=== PATIENT | male | born 1960 | race Caucasian/White ===

== ENCOUNTER 2019-10-17 12:53 | Inpatient (IN) | payer OTHER ==
[~2019-10-17] VITALS: Ht 180.3 cm; Wt 79.6 kg
[2019-10-17 15:47] VITALS: BP 185/103
[2019-10-17 16:54] LABS: BASOPHILS 0.2 % (0-2); EOSINOPHILS 0.4 % (0-7); HEMATOCRIT 45.8 % (42.0-54.0); HEMOGLOBIN 15.8 g/dL (13.5-17.5); IMMATURE GRANULOCYTES 0.2 % (0-5); LYMPHOCYTES 33.6 % (15-50); MCH 33.3 pg (26.0-34.0); MCHC 34.5 g/dL (31.0-37.0); MCV 96.6 fL (80.0-100.0); MEAN PLATELET VOLUME 10.4 fL (7.4-10.4); MONOCYTES 5.2 % (2-11); NEUTROPHILS 60.4 % (40-80); PLATELET COUNT 213 10x3/uL (130-400); RBC 4.74 10x6/uL (4.20-6.10); RDW 12.6 % (11.5-14.5); WBC 9.4 10x3/uL (4.8-10.8)
[2019-10-17 17:18] LABS: CALC OSMOLALITY 277 mosm/kg (275-300); CALCIUM 8.7 mg/dL (8.5-10.1); CARBON DIOXIDE 28.4 mmol/L (21.0-32.0); CHLORIDE - SERUM 105 mmol/L (98-107); CREATININE - SERUM 0.9 mg/dL (0.6-1.3); GLUCOSE 83 mg/dL (74-106); POTASSIUM - SERUM 3.9 mmol/L (3.5-5.1); SODIUM 141 mmol/L (136-145); UREA NITROGEN 8 mg/dL (7-18); eGFR NON AFRICAN AMERICAN > 90 mL/min (90-120)
[2019-10-17 17:22] LABS: ALBUMIN 3.8 g/dL (3.4-5.0); ALKALINE PHOSPHATASE 93 U/L (46-116); ALT (SGPT) 33 U/L (10-68); BILIRUBIN - TOTAL 0.37 mg/dL (0.2-1.3); PROTEIN - SERUM 7.5 g/dL (6.4-8.2)
--- NOTE | 2019-10-17 18:42 | NUR ---
PATIENT SITTING UP ON STRETCHER WITHOUT DISTRESS, NECK PAIN 06/07, MD JUST NOTIFIED PATIENT THAT HE WILL BE ADMITTED. MEDICATION GIVEN PER ORDER.
--- NOTE | 2019-10-17 18:59 | NUR ---
HOSPITALIST TO BEDSIDE.
[2019-10-17 19:30] VITALS: BP 181/93
--- NOTE | 2019-10-17 20:41 | NUR ---
ATTEMPTED TO CALL REPORT TO NII SCHULTZ, ROOM NOT READY AT THIS TIME.
[2019-10-17 21:01] VITALS: BP 158/75
[2019-10-18] VITALS (15 sets, daily range): BP systolic 118–166; BP diastolic 71–110; BMI 22.3
--- NOTE | 2019-10-18 03:06 | NUR ---
2100) ER CALLED TALKED WITH RITA TO INFORM RM [phone] IS NOW READY.
[2019-10-18 06:15] LABS: BASOPHILS 0 % (0-2); EOSINOPHILS 0 % (0-7); HEMATOCRIT 45.5 % (42.0-54.0); HEMOGLOBIN 15.8 g/dL (13.5-17.5); IMMATURE GRANULOCYTES 0.3 % (0-5); MCH 33.4 pg (26.0-34.0); MCHC 34.7 g/dL (31.0-37.0); MCV 96.2 fL (80.0-100.0); MEAN PLATELET VOLUME 10.8 fL (7.4-10.4); MONOCYTES 1.2 % (2-11); NEUTROPHILS 84.5 % (40-80); PLATELET COUNT 201 10x3/uL (130-400); RBC 4.73 10x6/uL (4.20-6.10); RDW 12.5 % (11.5-14.5)
[2019-10-18 06:32] LABS: ALBUMIN 3.4 g/dL (3.4-5.0); ALKALINE PHOSPHATASE 92 U/L (46-116); ALT (SGPT) 34 U/L (10-68); APTT 26.8 SECONDS (22.8-39.4); BILIRUBIN - TOTAL 0.52 mg/dL (0.2-1.3); CALCIUM 8.5 mg/dL (8.5-10.1); CARBON DIOXIDE 27.3 mmol/L (21.0-32.0); CHLORIDE - SERUM 105 mmol/L (98-107); CREATININE - SERUM 0.9 mg/dL (0.6-1.3); PHOSPHOROUS 2.7 mg/dL (2.5-4.9); PROTEIN - SERUM 7.1 g/dL (6.4-8.2); SODIUM 138 mmol/L (136-145); UREA NITROGEN 9 mg/dL (7-18); eGFR NON AFRICAN AMERICAN > 90 mL/min (90-120)
[2019-10-18 06:33] LABS: CALC OSMOLALITY 277 mosm/kg (275-300); GLUCOSE 160 mg/dL (74-106)
[2019-10-18 06:36] LABS: INR 0.98 (0.85-1.17); PROTIME 12.5 SECONDS (11.6-15.0)
[2019-10-18 07:01] LABS: WBC 5.9 10x3/uL (4.8-10.8)
--- NOTE | 2019-10-18 13:10 | NUR ---
TAKEN TO CT PER BED, AT BEDSIDE
[2019-10-18 15:28] LABS: UDS - AMPHET NEGATIVE QUAL (NEGATIVE); UDS - BARB NEGATIVE QUAL (NEGATIVE); UDS - BENZO POSITIVE QUAL (NEGATIVE); UDS - COCAINE NEGATIVE QUAL (NEGATIVE); UDS - OPIATE POSITIVE QUAL (NEGATIVE); UDS - PCP NEGATIVE QUAL (NEGATIVE); UDS - THC POSITIVE QUAL (NEGATIVE)
[2019-10-18 15:34] LABS: APPEARANCE CLEAR (CLEAR); BILIRUBIN NEGATIVE (NEGATIVE); COLOR YELLOW (YELLOW); GLUCOSE NEGATIVE (NEGATIVE); KETONE SMALL mg/dL (NEGATIVE); NITRITE NEGATIVE (NEGATIVE); PROTEIN NEGATIVE (NEGATIVE); UROBILINOGEN NORMAL (NORMAL)
--- NOTE | 2019-10-18 15:37 | NUR ---
PT TAKEN TO CT FOR CHEST TUBE PLACEMENT, PT ON O2 PER NC AT 3L, SATING 96%
--- NOTE | 2019-10-18 16:29 | NUR ---
RETURNED TO UNIT WITH CHEST TUBE IN PLACE TO RIGHT SIDE, NO DISTRESS NOTED, VITALS BEING MONITORED
[2019-10-19 01:47] VITALS: BP 157/81
--- NOTE | 2019-10-19 04:33 | NUR ---
PATIENT WITH C/O PAIN STATED IT IS SHARP TO BACK UNDER SHOULDER BLAD TO SPINE. ASK IF CHEST TUB WAS OK. CHEST TUB ASSISST WITH NO LEAKS NOTED.PRN MORPHINE GIVEN. C/O SHARP KHOA AT 0000. CALL TO REGISTERED PUBLIC SURVEYOR TALKED WITH HIM REASSISED CHEST TUBE WITH COLLISION CENTER MANAGER WITH NO LOEAKS NOTED SETTING CHECKED AND CORECT. MORPE GIVEN. RESTNQ
[2019-10-19 06:22] VITALS: BP 174/83
[2019-10-19 06:45] LABS: BASOPHILS 0.1 % (0-2); EOSINOPHILS 0.1 % (0-7); HEMOGLOBIN 13.9 g/dL (13.5-17.5); IMMATURE GRANULOCYTES 0.3 % (0-5); LYMPHOCYTES 19.6 % (15-50); MCH 32.9 pg (26.0-34.0); MCHC 33.9 g/dL (31.0-37.0); MCV 96.9 fL (80.0-100.0); MEAN PLATELET VOLUME 11.2 fL (7.4-10.4); MONOCYTES 4.9 % (2-11); PLATELET COUNT 190 10x3/uL (130-400); RBC 4.23 10x6/uL (4.20-6.10); RDW 12.7 % (11.5-14.5)
[2019-10-19 06:46] LABS: WBC 11.5 10x3/uL (4.8-10.8)
[2019-10-19 07:04] LABS: CALC OSMOLALITY 276 mosm/kg (275-300); CALCIUM 7.9 mg/dL (8.5-10.1); CARBON DIOXIDE 25.4 mmol/L (21.0-32.0); CHLORIDE - SERUM 108 mmol/L (98-107); CREATININE - SERUM 0.9 mg/dL (0.6-1.3); GLUCOSE 84 mg/dL (74-106); MAGNESIUM - SERUM 2.4 mg/dL (1.8-2.4); PHOSPHOROUS 3.4 mg/dL (2.5-4.9); POTASSIUM - SERUM 3.9 mmol/L (3.5-5.1); SODIUM 140 mmol/L (136-145); UREA NITROGEN 11 mg/dL (7-18); eGFR NON AFRICAN AMERICAN > 90 mL/min (90-120)
[2019-10-19 08:42] VITALS: BP 131/81
--- NOTE | 2019-10-19 10:11 | NUR ---
PT ALERT X 4. BREATH SOUNDS CLEAR BILAT, 2L O2 PER NC. DRESSING TO RIGHT UPPER CHEST CDI. CHEST TUBE TO RIGHT SIDE, SET TO WATER SEAL, DRESSING CDI. IV TO RIGHT AC, PATENT, DRESSING CDI. PT REPORTING PAIN OF 10/10, MEDICATED PER ORDERS, WILL MONITOR. BED LOW, CALL LIGHT IN REACH. NO OTHER NEEDS AT THIS TIME.
[2019-10-19 12:44] VITALS: BP 152/80
--- NOTE | 2019-10-19 15:16 | MORECARE ---
CASE MANAGEMENT DISCHARGE SUMMARY PATIENT: MAX IGLESIAS UNIT: [id number] ADM DATE: 10/18/19 AGE: 59 : 62 SEX: M ROOM/BED: D.2239 AUTHOR: AMERICA BRIAN PHYSICIAN: REFERRING PHYSICIAN: ED TRAN MD DATE OF SERVICE: 10/19/19 Discharge Plan Patient Name: MAX IGLESIAS Facility: [facility]:[place] : 1960 Planned Disposition: Home Anticipated Discharge Date: 10/19/19 Discharge Date: Expected LOS: 1 Initial Reviewer: [email or web address] Initial Review Date: 10/19/2019 Generated: 10/19/19 4:15 pm Patient Name: MAX IGLESIAS Page [id number] at 1516 All edits/amendments must be made on the electronic document DICTATION DATE: 10/19/191514 GIS ANALYST: SCOTTY 10/19/191514 RPT#: [id number] DC DATE: STATUS: ADM IN [facility] [address] [place] [address] END OF REPORT
--- NOTE | 2019-10-19 15:25 | MORECARE ---
CASE MANAGEMENT DISCHARGE SUMMARY PATIENT: MAX MUÑOZ UNIT: [id number] ADM DATE: 10/18/19 AGE: 59 : 62 SEX: M ROOM/BED: D.2239 AUTHOR: SNEHALDOC PHYSICIAN: REFERRING PHYSICIAN: ED TRAN MD DATE OF SERVICE: 10/19/19 Discharge Plan Patient Name: MAX MUÑOZ Facility: [facility]:[place] : 1960 Planned Disposition: Home Anticipated Discharge Date: 10/19/19 Discharge Date: Expected LOS: 1 Initial Reviewer: [email or web address] Initial Review Date: 10/19/2019 Generated: 10/19/19 4:25 pm DCP- Discharge Planning Updated by [email or web address]: Lolita Ferro on 10/19/19 2:[address] Patient Name: MAX MUÑOZ Admission Status: ER Accout number: [id number] Admission Date: 10-18-2019 : 1960 Admission Diagnosis: Attending: ED TRAN Current LOS: 1 Anticipated DC Date: 10-19-2019 Planned Disposition: Home Primary Insurance: MEDICAID [place] PENDING Discharge Planning Comments: CM met with patient to complete initial dc planning assessment. CM educated patient on the CM role and verbal consent given by patient to complete assessment. Patient lives at home with his . At discharge patient plans to return and feels this is a safe discharge. CM discussed availability of home health, rehab services, and medical equipment. Patient denied known discharge needs at this time. I did inform him of signing up for a PCP when his Medicaid paper work came in the mail. I gave him a hand out on [facility] with the phone number as well. States his will take him home on discharge. CM will continue to follow and will assist as needed with dc plans/needs. Estimator And Drafter: Lolita Ferro DCPIA - Discharge Planning Initial Assessment Updated by [email or web address]: Lolita Ferro on 10/19/19 3:18 pm * Is the patient Alert and Oriented? Yes * PCP None * Pharmacy [facility] [address] * Preadmission Environment Home with Family * ADLs Independent * Equipment None * List name and contact numbers for known caregivers / representatives who currently or will assist patient after discharge: Kim Muñoz - [phone] * Verbal permission to speak to the caregivers and representatives has been obtained from the patient. Yes * Community resources currently utilized None * Additional services required to return to the preadmission environment? No * Can the patient safely return to the preadmission environment? Yes * Has this patient been hospitalized within the prior 30 days at any hospital? No Last DP export: 10/19/19 2:16 Patient Name: ARMANDO MUÑOZN Page [id number] at 1525 All edits/amendments must be made on the electronic document DICTATION DATE: 10/19/191523 MOVIE WRITER: SCOTTY 10/19/191523 RPT#: [id number] DC DATE: STATUS: ADM IN [facility] [address] [place] [address] END OF REPORT
[2019-10-19 15:39] VITALS: BP 128/63
[2019-10-19 18:41] VITALS: Ht 180.3 cm; Wt 79.6 kg
[2019-10-19 21:23] VITALS: BP 143/87
--- NOTE | 2019-10-20 03:55 | NUR ---
ALERT AND ORENTED ABLE TO VOICE NEEDS AND WANTS TO STAFF. IV TO RIFHT AC WITH NS AT 125 ML/HR. UP AT MARCEL. DRESSING CDI TO RIGHT SIDE AND RIGHT CHEST. CALL LIGHT AND WATER IN REACH.
[2019-10-20 05:08] LABS: BASOPHILS 0.1 % (0-2); EOSINOPHILS 0.5 % (0-7); HEMATOCRIT 38.4 % (42.0-54.0); HEMOGLOBIN 12.8 g/dL (13.5-17.5); IMMATURE GRANULOCYTES 0.1 % (0-5); LYMPHOCYTES 43.4 % (15-50); MCH 32.5 pg (26.0-34.0); MCHC 33.3 g/dL (31.0-37.0); MCV 97.5 fL (80.0-100.0); MEAN PLATELET VOLUME 10.7 fL (7.4-10.4); MONOCYTES 7.9 % (2-11); PLATELET COUNT 180 10x3/uL (130-400); RBC 3.94 10x6/uL (4.20-6.10); RDW 12.8 % (11.5-14.5)
[2019-10-20 05:16] LABS: WBC 7.8 10x3/uL (4.8-10.8)
[2019-10-20 05:27] LABS: CALC OSMOLALITY 281 mosm/kg (275-300); CALCIUM 7.4 mg/dL (8.5-10.1); CARBON DIOXIDE 26.3 mmol/L (21.0-32.0); CHLORIDE - SERUM 111 mmol/L (98-107); GLUCOSE 87 mg/dL (74-106); MAGNESIUM - SERUM 2.4 mg/dL (1.8-2.4); PHOSPHOROUS 3.8 mg/dL (2.5-4.9); POTASSIUM - SERUM 3.8 mmol/L (3.5-5.1); SODIUM 143 mmol/L (136-145); eGFR NON AFRICAN AMERICAN 81 mL/min (90-120)
[2019-10-20 05:32] LABS: UREA NITROGEN 8 mg/dL (7-18)
[2019-10-20 06:01] VITALS: BP 129/64
[2019-10-20 07:41] VITALS: BP 131/67
--- NOTE | 2019-10-20 10:27 | NUR ---
DR. ARELLANO STATED TO ME "IF PT GETS DISCHARGED TODAY MAKE SURE DR. TRAN GIVES HIME A SCRIPT FOR NICOTINE PATCHES AND PAIN MEDICATION AND MAKE AN APPOINTMENT WITH ME(DR. ARELLANO) NEXT WEDNESDAY." I VERBALIZED UNDERSTANDING.
--- NOTE | 2019-10-20 11:44 | NUR ---
I have reviewed this patient and I concur with the Shift Assessment completed by the Licensed Practical Nurse today this shift.
[2019-10-20] MEDS ORDERED: LISINOPRIL10 MG PO (13:51)
[2019-10-20] MEDS ORDERED: Nicoderm [PBKC] TRANSDERM (13:52)
[2019-10-20] MEDS ORDERED: NORCO-7.5 PO (13:52)
--- NOTE | 2019-10-20 14:59 | MORECARE ---
CASE MANAGEMENT DISCHARGE SUMMARY PATIENT: MAX IGLESIAS UNIT: [id number] ADM DATE: 10/18/19 AGE: 59 : 62 SEX: M ROOM/BED: D.2239 AUTHOR: AMERICA BRIAN PHYSICIAN: REFERRING PHYSICIAN: ED TRAN MD DATE OF SERVICE: 10/20/19 Discharge Plan Patient Name: MAX IGLESIAS Facility: [facility]:[place] : 1960 Planned Disposition: Home Anticipated Discharge Date: 10/19/19 Discharge Date: Expected LOS: 1 Initial Reviewer: [email or web address] Initial Review Date: 10/19/2019 Generated: 10/20/19 3:59 pm DCP- Discharge Planning Updated by [email or web address]: Lolita Ferro on 10/20/19 1:[address] Patient Name: MAX IGLESIAS Encounter No: [id number] : 1960 Primary Insurance: [employer] Anticipated DC Date: 10-19-2019 Planned Disposition: Home External Planned Provider: : DCP follow-up note: Patient in agreement with discharge plan. No changes to plan. Case management will follow and assist as needed. Lolita Ferro DCP- Discharge Planning Updated by [email or web address]: Lolita Ferro on 10/19/19 2:[address] Patient Name: MAX IGLESIAS Admission Status: ER Accout number: [id number] Admission Date: 10-18-2019 : 1960 Admission Diagnosis: Attending: ED TRAN Current LOS: 1 Anticipated DC Date: 10-19-2019 Planned Disposition: Home Primary Insurance: MEDICAID [place] PENDING Discharge Planning Comments: CM met with patient to complete initial dc planning assessment. CM educated patient on the CM role and verbal consent given by patient to complete assessment. Patient lives at home with his . At discharge patient plans to return and feels this is a safe discharge. CM discussed availability of home health, rehab services, and medical equipment. Patient denied known discharge needs at this time. I did inform him of signing up for a PCP when his Medicaid paper work came in the mail. I gave him a hand out on [facility] with the phone number as well. States his will take him home on discharge. CM will continue to follow and will assist as needed with dc plans/needs. Human Resources Talent Manager: Lolita Ferro DCPIA - Discharge Planning Initial Assessment Updated by [email or web address]: Lolita Ferro on 10/19/19 3:18 pm * Is the patient Alert and Oriented? Yes * PCP None * Pharmacy [facility] [address] * Preadmission Environment Home with Family * ADLs Independent * Equipment None * List name and contact numbers for known caregivers / representatives who currently or will assist patient after discharge: Kim Wanda - [phone] * Verbal permission to speak to the caregivers and representatives has been obtained from the patient. Yes * Community resources currently utilized None * Additional services required to return to the preadmission environment? No * Can the patient safely return to the preadmission environment? Yes * Has this patient been hospitalized within the prior 30 days at any hospital? No Last DP export: 10/19/19 2:25 Patient Name: WANDAMAX Page 39149 at 1453 All edits/amendments must be made on the electronic document DICTATION DATE: 10/20/191458 MANAGER DISASTER RECOVERY: SCOTTY 10/20/191458 RPT#: [id number] DC DATE: STATUS: ADM IN [facility] [address] [place] [address] END OF REPORT
--- NOTE | 2019-10-20 15:48 | NUR ---
RIGHT AC 20G IV DC'D WITH CATH INTACT. DISCHARGE INSTRUCTIONS GIVEN TO PT. PT HAD NO FURTHER QUESTIONS. CHART COPY SIGNED. PT DENIED NEED FOR ESCORT. PT STATES HE HAS HIS PERSONAL CAR HE WILL WLAK OUT TO.
--- NOTE | 2019-10-21 15:26 | MORECARE ---
CASE MANAGEMENT DISCHARGE SUMMARY PATIENT: MAX IGLESIAS UNIT: [id number] ADM DATE: 10/18/19 AGE: 59 : 62 SEX: M ROOM/BED: D.2239 AUTHOR: SNEHALDOC PHYSICIAN: REFERRING PHYSICIAN: ED TRAN MD DATE OF SERVICE: 10/21/19 Discharge Plan Patient Name: MAX IGLESIAS Facility: [facility]:[place] : 1960 Planned Disposition: Home Anticipated Discharge Date: 10/19/19 Discharge Date: 10/20/2019 Expected LOS: 1 Initial Reviewer: [email or web address] Initial Review Date: 10/19/2019 Generated: 10/21/19 4:25 pm DCP- Discharge Planning Updated by [email or web address]: Lolita Ferro on 10/20/19 1:[address] Patient Name: MAX IGLESIAS Encounter No: [id number] : 1960 Primary Insurance: [employer] Anticipated DC Date: 10-19-2019 Planned Disposition: Home External Planned Provider: : DCP follow-up note: Patient in agreement with discharge plan. No changes to plan. Case management will follow and assist as needed. Lolita Ferro DCP- Discharge Planning Updated by [email or web address]: Lolita Ferro on 10/19/19 2:[address] Patient Name: MAX IGLESIAS Admission Status: ER Accout number: [id number] Admission Date: 10-18-2019 : 1960 Admission Diagnosis: Attending: ED TRAN Current LOS: 1 Anticipated DC Date: 10-19-2019 Planned Disposition: Home Primary Insurance: MEDICAID [place] PENDING Discharge Planning Comments: CM met with patient to complete initial dc planning assessment. CM educated patient on the CM role and verbal consent given by patient to complete assessment. Patient lives at home with his . At discharge patient plans to return and feels this is a safe discharge. CM discussed availability of home health, rehab services, and medical equipment. Patient denied known discharge needs at this time. I did inform him of signing up for a PCP when his Medicaid paper work came in the mail. I gave him a hand out on [facility] with the phone number as well. States his will take him home on discharge. CM will continue to follow and will assist as needed with dc plans/needs. Applications Development Consultant: Lolita Ferro DCPIA - Discharge Planning Initial Assessment Updated by [email or web address]: Lolita Ferro on 10/19/19 3:18 pm * Is the patient Alert and Oriented? Yes * PCP None * Pharmacy [facility] [address] * Preadmission Environment Home with Family * ADLs Independent * Equipment None * List name and contact numbers for known caregivers / representatives who currently or will assist patient after discharge: Kim Wanda - [phone] * Verbal permission to speak to the caregivers and representatives has been obtained from the patient. Yes * Community resources currently utilized None * Additional services required to return to the preadmission environment? No * Can the patient safely return to the preadmission environment? Yes * Has this patient been hospitalized within the prior 30 days at any hospital? No Last DP export: 10/20/19 1:59 Patient Name: MAX IGLESIAS Page [id number] at 1526 All edits/amendments must be made on the electronic document DICTATION DATE: 10/21/19 152 UROLOGY SURGEON: SCOTTY 10/21/19 152 RPT#: [id number] DC DATE:10/20/19 STATUS: DIS IN [facility] [address] [place] [address] END OF REPORT
[2019-10-21 20:07] LABS: ANGIOTENSIN CONVERTING ENZYME 9 U/L (14-82)
[2019-10-24 21:11] LABS: FUNGAL - ASP FLAVUS Negative (Neg:<1:1); FUNGAL - ASP NIGER Negative (Neg:<1:1); FUNGAL - ASPER FUMIGATUS Negative (Neg:<1:1)
== END 2019-10-20 16:10 | disposition home or self-care (01) | DRG 200 ==
LOC: D.ER 12:53 → D.MS 20:15 → OBSVTIME 20:28 → D.MS 10-18 16:14
PROVIDERS: Family Medicine; Internal Medicine Pulmonary Disease; Radiology Diagnostic Radiology; ADMIT Family Medicine; ATTEND Family Medicine
PROC: 0BBC3ZX Excision of Right Upper Lung Lobe, Percutaneous Approach, Diagnostic (ICD-10-PCS; 2019-10-18)
PROC: 0W9930Z Drainage of Right Pleural Cavity with Drainage Device, Percutaneous Approach (ICD-10-PCS; principal; 2019-10-18 13:30)
DX: J95.811 Postprocedural pneumothorax (principal); F17.203 Nicotine dependence unspecified, with withdrawal; C34.90 Malignant neoplasm of unspecified part of unspecified bronchus or lung; F19.10 Other psychoactive substance abuse, uncomplicated; J44.9 Chronic obstructive pulmonary disease, unspecified; K21.9 Gastro-esophageal reflux disease without esophagitis; I10 Essential (primary) hypertension; Z72.89 Other problems related to lifestyle

== ENCOUNTER 2019-12-18 05:14 | Day surgery (SDC) | payer MEDICAID ==
[~2019-12-18] VITALS: Ht 177.8 cm; Wt 74.8 kg
[~2019-12-18 05:14] MED LIST: LISINOPRIL10 MG PO; NORCO-7.5 PO; Nicoderm [PBKC] TRANSDERM
[2019-12-18 05:57] LABS: APTT 28.3 SECONDS (22.8-39.4); INR 0.91 (0.85-1.17); PROTIME 12.2 SECONDS (11.6-15.0)
[2019-12-18 06:01] LABS: BASOPHILS 0.3 % (0-2); EOSINOPHILS 1.2 % (0-7); HEMATOCRIT 44.6 % (42.0-54.0); IMMATURE GRANULOCYTES 0.3 % (0-5); LYMPHOCYTES 42.3 % (15-50); MCH 32.6 pg (26.0-34.0); MCHC 33.6 g/dL (31.0-37.0); MEAN PLATELET VOLUME 9.8 fL (7.4-10.4); MONOCYTES 6.3 % (2-11); NEUTROPHILS 49.6 % (40-80); RDW 13.3 % (11.5-14.5); WBC 7.6 10x3/uL (4.8-10.8)
[2019-12-18 06:20] VITALS: BP 128/83; Ht 177.8 cm; Wt 74.8 kg
[2019-12-18 06:45] LABS: PLATELET COUNT 249 10x3/uL (130-400)
[2019-12-18] MEDS ORDERED: HYDROCODON-ACE1 EAC7 PO (08:34)
--- NOTE | 2019-12-18 09:50 | NUR ---
DR MIKE CALLED AT THIS TIME, AND STATES THAT HE WOULD LIKE TO LEAVE PORT ACCESSED UNTIL PT HAS TREATMENT.
--- NOTE | 2019-12-18 10:00 | NUR ---
PT DC INSTRUCTIONS REVIEWED AT THIS TIME, PT VERBALIZES UNDERSTANDING. PT IV REMOVED AT THIS TIME, INTACT, NO REDNESS OR SWELLING NOTED AT SITE.
--- NOTE | 2019-12-18 10:16 | NUR ---
PT LEAVING OPS AT THIS TIME, VIA WC, NAD NOTED.
== END 2019-12-18 10:16 | disposition home or self-care (01) ==
LOC: D.OPS 05:14 → D.PAN 14:00 → D.OPS 14:00
PROVIDERS: Anesthesiology; ATTEND Surgery
DX: C34.92 Malignant neoplasm of unspecified part of left bronchus or lung (principal); R91.8 Other nonspecific abnormal finding of lung field; F19.20 Other psychoactive substance dependence, uncomplicated; F17.203 Nicotine dependence unspecified, with withdrawal

== ENCOUNTER → 2020-05-01 09:30 | Outpatient (CLI) | payer OTHER ==
[2019-12-18 06:20] VITALS: BMI 23.7
[~2020-05-01 09:30] MED LIST changes: +HYDROCODON-ACE1 EAC7 PO
== END | disposition home or self-care (01) ==
LOC: D.MRI 09:30
PROVIDERS: ATTEND Internal Medicine Hematology & Oncology
DX: R52 Pain, unspecified (principal); G62.0 Drug-induced polyneuropathy

== ENCOUNTER → 2020-05-02 13:03 | Outpatient (CLI) | payer OTHER ==
[2019-12-18 06:20] VITALS: BMI 23.7
== END | disposition home or self-care (01) ==
LOC: D.US 13:00
PROVIDERS: ATTEND Internal Medicine Hematology & Oncology
DX: C34.01 Malignant neoplasm of right main bronchus (principal); I82.403 Acute embolism and thrombosis of unspecified deep veins of lower extremity, bilateral

== ENCOUNTER → 2020-05-17 11:24 | Outpatient (CLI) | payer OTHER ==
[2019-12-18 06:20] VITALS: BMI 23.7
== END | disposition home or self-care (01) ==
LOC: D.US 11:24
PROVIDERS: ATTEND Internal Medicine Hematology & Oncology
DX: I73.9 Peripheral vascular disease, unspecified (principal)

== ENCOUNTER 2020-05-23 11:37 | Inpatient (IN) | payer OTHER ==
[~2020-05-23] VITALS: Ht 177.8 cm; Wt 83.5 kg
--- NOTE | ~2020-05-23 | HEMODYNAMI ---
PATIENT:MAX IGLESIAS MEDICAL RECORD: [id number] : 62 LOCATION:D.MS [facility]2213 ADMISSION DATE: 05/23/20 Generatedon:05/24/202016:32 Patient name: MAX IGLESIAS Patient #: [id number] SSN: D OB: 1960 Date of study: 05/24/2020 Page: Of Hemodynamic Procedure Report Patient Data Patient Demographics Procedure consent was obtained First Name: MAX Gender: Male Last Name: KELSIE : 1960 Middle Initial: T Age: 60 year(s) Patient #: [id number] Race: Unknown Additional ID: [id number] Contact details [address]: [address] [place] [address] State: [place] City: [place] Zip code: [address] Past Medical History Allergies: No known allergies Admission Admission Data Admission Date: 05/23/2020 Admission Time: 11:37 Room #: D.2213 Procedure Procedure Types Cath Procedure Peripheral Cath Diagnostic Procedure Plastic Press Molder Peripheral Procedures Abd/Extremity Extremities Left Lower Ext Arterio Procedure Description Procedure Date Procedure Date: 05/24/2020 Procedure Start Time: 15:23 Procedure Staff Name Function Yoan Daniels MD Performing Physician Charisse Brandt RT Rejogger Rebekah Prakash RN Nurse Gilberto Rangel RT Scrub Procedure Data Cath Procedure Fluoroscopy Diagnostic fluoroscopy Total fluoroscopy Time: time: 14.7 min 14.7 min Diagnostic fluoroscopy Total fluoroscopy dose: 174 dose: 174 mGy mGy Contrast Material Contrast Material Type Amount (ml) Isovue 300 60 Entry Location Entry Primary Successful Side Size Upsize Upsize Entry Closure Succes sful Closure Location (Fr) 1 (Fr) 2 (Fr) Remarks Device Remarks Femoral Mynx artery Grip Wrapper 6Fr/7Fr Diagnostic catheters Device Type Used For End Catheter Placement DIAGNOSTIC IMT 5Fr Catheter ([id number]) Procedure Medications Medication Administration Route Dosage Heparin Flush Bag added to field 2 bags (1000units/500ml NS) Lidocaine 1% added to field 20 Versed I.V. 1 mg Fentanyl I.V. 50 mcg Benadryl I.V. 50 mg Heparin Bolus I.V. 4000 units Fentanyl I.V. 50 mcg Nitroglycerin IC/IA I.A. 300 mcg Fentanyl I.V. 50 mcg Versed I.V. 1 mg Fentanyl I.V. 50 mcg Hemodynamics Rest Heart Rate: 70 (bpm) Snapshots Pre Cath Intra NCS Post Cath Vital Signs Time Heart Resp SPO2 etCO2 NIBP (mmHg) Rhythm Pain Sedation Rate (ipm) (%) (mmHg) Status Level (bpm) 15:15:39 67 8 31.6 142/75(115) NSR 0 (11) 10(A) , No pain 15:19:55 67 11 40.6 148/84(120) NSR 0 (11) 10(A) , No pain 15:24:11 71 12 98 45.2 133/102(123) NSR 0 (11) 10(A) , No pain 15:28:23 70 12 97 36.8 135/81(115) NSR 0 (11) 10(A) , No pain 15:32:35 72 12 97 38.3 121/89(112) NSR 0 (11) 9(A) , No pain 15:37:32 72 7 97 34.6 127/83(115) NSR 0 (11) 9(A) , No pain 15:41:38 71 13 97 11.3 138/94(121) NSR 0 (11) 8(A) , No pain 15:45:51 71 20 96 22.5 137/85(115) NSR 0 (11) 8(A) , No pain 15:50:04 74 14 89 31.6 131/87(113) NSR 0 (11) 8(A) , No pain 15:54:17 73 12 94 42.1 129/75(102) NSR 0 (11) 8(A) , No pain 15:58:31 71 12 96 38.4 126/74(92) NSR 0 (11) 8(A) , No pain 16:02:43 72 11 95 37.6 129/79(98) NSR 0 (11) 8(A) , No pain 16:06:55 73 12 96 42.9 128/79(102) NSR 0 (11) 8(A) , No pain 16:11:05 70 12 97 27.1 136/82(99) NSR 0 (11) 8(A) , No pain 16:15:21 72 10 97 37.6 121/80(95) NSR 0 (11) 8(A) , No pain 16:19:27 68 10 96 38.3 139/88(107) NSR 0 (11) 8(A) , No pain 16:23:43 68 8 95 38.3 132/81(107) NSR 0 (11) 8(A) , No pain 16:27:53 68 13 95 36.8 125/86(116) NSR 0 (11) 8(A) , No pain 16:32:01 69 12 95 37.6 131/85(99) NSR 0 (11) 8(A) , No pain Medications Time Medication Route Dose Verified Delivered Reason Notes Effe ctiveness by by 15:23:41 Heparin Flush added 2 Yoan Milton used for Bag to bags Frances Daniels procedure (1000units/500ml field MD JASMINE NS) 15:23:52 Lidocaine 1% added 20ml Yoan Milton for local to vial Frances Daniels anesthetic field MD JASMINE 15:24:06 Versed I.V. 1 mg Yoan Welch for Frances Prakash RN sedation 15:24:16 Fentanyl I.V. 50 Yoan Welch for mcg Frances Prakash RN sedation 15:24:32 Benadryl I.V. 50 mg Yoan Welch Per Frances Prakash RN physician 15:28:24 Heparin Bolus I.V. 4000 Yoan Welch Per units Frances Prakash RN physician 15:39:44 Fentanyl I.V. 50 Yoan Welch for mcg Frances Prakash RN sedation 15:46:26 Nitroglycerin I.A. 300 Yoan Milton Per IC/IA mcg Frances rosenbaum MD, MD 15:46:48 Fentanyl I.V. 50 Yoan Welch for mcg Frances Prakash RN sedation 15:47:00 Versed I.V. 1 mg Yoan Welch for Frances Prakash RN sedation 16:04:20 Fentanyl I.V. 50 Yoan Welch for mcg Frances Prakash RN sedation Procedure Log Time Note 14:48:03 Time tracking: Regular hours (M-F 7:00 - 5:00) 14:48:44 Plan of Care:Hemodynamics will remain stable., Cardiac rhythm will remain stable., Comfort level will be maintained., Respiratory function will remain adequate., Patient/ family verbilizes understanding of procedure., Procedure tolerated without complication., Recovers from procedure without complications.. 14:48:54 Patient received from Med/Surg to IR Alert and oriented. Tansferred to table in Supine position. 14:48:58 Signed procedure consent form obtained from patient. 14:49:03 H&P Date Dictated: 05/24/2020 Within 30 days and on chart.. 14:49:05 Pre-procedure instructions explained to patient. 14:49:07 Pre-op teaching completed and patient verbalized understanding. 14:49:09 Family unavailable. 14:49:11 Patient NPO since Midnight. 14:49:20 Patient allergic to No known allergies 14:49:52 - 14:49:52 ----Pre-sedation anethsthesia assessment.---- 14:49:56 Previous problem with sedation/anesthesia? No ? 14:49:59 Snore? Yes 14:50:01 Sleep apnea? Yes 14:50:04 Deviated septum? No 14:50:08 Opens mouth fully? Yes 14:50:10 Sticks out tongue? Yes 14:50:15 Airway obstruction? Yes lung ca 14:50:20 Dentures? No ? 14:50:39 Right groin area was prepped with chlora-prep and draped in sterile fashion 14:50:41 - 14:50:48 Use device set IR Diagnostic 14:51:17 A DIAGNOSTIC IMT 5Fr Catheter ([id number]) was advanced over the wire an d used for . 14:51:18 Micropuncture VSI 4FR kit opened to sterile field. 14:51:19 LINK 260 wire ([id number]) opened to sterile field. 14:51:20 BENTSON 145cm wire ([id number]) opened to sterile field. 14:51:21 Tegaderm 4 x 4 (1626W) opened to sterile field. 14:51:22 Sterile Angiographic Pack opened to sterile field. 14:51:23 Bag Decanter (2002S) opened to sterile field. 14:51:29 - 15:14:26 Vital chart was started 15:20:43 ECG and BP/O2 sat monitors applied to patient. 15:20:45 Baseline sample Acquired. 15:20:47 Full Disclosure recording started 15:21:14 Patient diabetic? No. 15:21:24 Pre procedure: right dorsailis pedis pulse Doppler 15:21:27 Pre procedure: left dorsailis pedis pulse Doppler 15:21:30 Pre procedure: right posterior tibial pulse Doppler 15:21:38 Pre procedure: left posterior tibial pulse Doppler 15:21:45 - 15:22:23 Physician arrived 15::23 --------ALL STOP TIME OUT------ 15::24 Final Timeout: patient, procedure, and site verified with staff and physician. All members of the team are in agreement. 15:22:43 Fire Safety Assessment: A--An alcohol-based skin anteseptic being used preoperatively., C--Open oxygen or nitrous oxide is being used. 15:22:48 2) 60-89 Mildly reduced kidney function, and other findings (as for stage 1) point to kidney disease. 15:23:04 Procedure started. 15:23:08 Local anesthetic to right femoral artery with Lidocaine 1% by Yoan Daniels MD.INITIAL ACCESS ONLY 15:23:11 Arterial access obtained using ultrasound guidance. 15:23:41 Heparin Flush Bag (1000units/500ml NS) 2 bags added to field was administered by Yoan Daniels MD; used for procedure; Verbal order read back and verified. 15:23:52 Lidocaine 1% 20ml vial added to field was administered by Yoan ann MD; for local anesthetic; Verbal order read back and verified. 15:24:06 Versed 1 mg I.V. was administered by Rebekah Prakash RN; for sedation; Verbal order read back and verified. 15:24:16 Fentanyl 50 mcg I.V. was administered by Rebekah Prakash RN; for sedation ; Verbal order read back and verified. 15:24:32 Benadryl 50 mg I.V. was administered by Rebekah Prakash RN; Per physician ; Verbal order read back and verified. 15:28:24 Heparin Bolus 4000 units I.V. was administered by Rebekah Prakash RN; Per physician; Verbal order read back and verified. 15:33:55 INFLATOR BasixTOUCH (PU2618) opened to sterile field. 15:33:56 ROADRUNNER .035 260 glide wire (Y24389) opened to sterile field. 15:34:41 CHOICE PT Extra Support J 300cm guide wire ([id number]) opened to steril e field. 15:34:43 SPIDER EMBOLIC PROTECTION DEVICE 4MM ([id number]) opened to sterile field. 15:36:41 CXI SUPPORT .035 135 CM STR catheter ([id number]) opened to sterile field. 15:39:44 Fentanyl 50 mcg I.V. was administered by Rebekah Prakash RN; for sedation ; Verbal order read back and verified. 15:43:59 Hawkone Medium Atherectomy System (H1-M) opened to sterile field. 15:46:26 Nitroglycerin IC/IA 300 mcg I.A. was administered by Yoan Daniels MD; Per physician; Verbal order read back and verified. 15:46:48 Fentanyl 50 mcg I.V. was administered by Rebekah Dwain RN; for sedation ; Verbal order read back and verified. 15:47:00 Versed 1 mg I.V. was administered by Rebekah Prakash RN; for sedation; Verbal order read back and verified. 16:00:27 SHEATH 7FR Destination (RSR04) opened to sterile field. 16:04:20 Fentanyl 50 mcg I.V. was administered by Rebekah Prakash RN; for sedation ; Verbal order read back and verified. 16:11:28 VIABAHN 6 X 5 X 120 stent ([id number]) was deployed across Undefined1 . 16:12:57 SHEATH 7FR Oran (DNC002) opened to sterile field. 16:13:26 MYNX MOLD OPERATOR 6FR/7FR ([id number]) opened to sterile field. 16:21:25 A sheath was inserted into the Femoral artery 16:21:25 Sheath removed intact; hemostasis achieved with Mynx Grip Wrapper 6Fr/7Fr to th e Femoral artery. 16:23:06 Procedure ended.(Physican Out) 16:23:46 Fluoroscopy time 14.70 minutes. 16:23:52 Fluoroscopy dose: 174 mGy 16:23:52 Flurop Dose total: 174 16:23:57 Contrast amount:Isovue 300 60ml. 16:27:32 Procedure and supply charges have been captured, reviewed, submitted an d are correct. 16:27:37 Report given to Med/Surg. 16:32:32 Vital chart was stopped Intervention Summary Intervention Notes Time ActionType Lesion and Equipment Action# Pressure Duration Attributes Used 16:11:28 Deploy self Undefined1 VIABAHN 6 X 1 expanding 5 X 120 stent stent ([id number]) Device Usage Item Name Manufacture Quantity Catalog Number Hospital Part Current Minimal Lot# / Charge Number Stock Stock Serial# Code DIAGNOSTIC IMT [place] 1 [id number] 214190 604736 69171 5 5Fr Catheter Scientific ([id number]) Micropuncture VSI VASCULAR 1 [id number] 278856 023599 5 VSI 4FR kit SOLUTIONS LINK 260 wire Cook Medical 1 G50093 394811 30586 102135 5 (V92532) BENTSON 145cm Cook Medical 1 D44404 818816 211341 5 wire (Y97528) Tegaderm 4 x 4 3M 1 1626W 456365 133733 618750 5 (1626W) Sterile Cardinal 1 [id number] 545448 119721 5 Angiographic Health Pack Bag Decanter Microtek 1 861743 02980 053893 5 () Medical Inc. INFLATOR Merit 1 QK6657 591703 003254 157499 5 BasixTOiContact Medical (KR4098) ROADRUNN Cook Medical 1 C07303 238916 436877 660561 5 .035 260 glide wire (H10472) CHOICE PT [place] 1 [id number] 617379 5 Extra Support Scientific J 300cm guide wire ([id number]) SPIDER EMBOLIC Medtronic 1 [id number] 512726 206869 5 PROTECTION DEVICE 5MM ([id number]) CXI SUPPORT TrillTip 1 U71439 799110 617948 006917 5 [id number] .035 135 CM STR catheter ([id number]) Hawkone Medium Medtronic 1 H1-M 883730 93921389 5 Atherectomy System (H1-M) SHEATH 7FR Terumo 1 RSR04 751539 516334 450527 5 Destination (RSR04) VIABAHN 6 X 5 W.L. Lamar 1 [id number] 653614 220453 212690 5 [id number] X 120 stent ([id number]) SHEATH 7FR Terumo 1 SBC561 970855 726646 663526 5 Oran (IEU557) MYNX MOLD OPERATOR Access 1 UT9728 317594 687070 5 [id number] 6FR/7FR Closure (IK2420) Signature Audit [place] Stage Time Signature Unsigned Intra-Procedure 05/24/2020 Charisse Brandt 4:32:28 PM RT(R) [facility] [address] [place] [address]
[2020-05-23] MEDS ORDERED: HYDROCODON-ACE1 EA10 PO (11:54)
[2020-05-23] MEDS ORDERED: GABAPENTIN100 MG PO (11:55)
[2020-05-23] MEDS ORDERED: CELEXA20 MG PO (11:56)
[2020-05-23 12:08] VITALS: BMI 26.4
--- NOTE | 2020-05-23 12:24 | NUR ---
ADMISSION VITALS. TEMP 98.0. BP 152/99. HR 87. RR 16. O2 98% ROOM AIR.
[2020-05-23 12:39] LABS: INR 0.86 (0.85-1.17); PROTIME 11.7 SECONDS (11.6-15.0)
[2020-05-23 12:40] LABS: APTT 26.2 SECONDS (22.8-39.4)
[2020-05-23 12:44] LABS: ALBUMIN 3.7 g/dL (3.4-5.0); ANION GAP 10.9 mmol/L (8-16); BILIRUBIN - TOTAL 0.35 mg/dL (0.2-1.3); CALCIUM 8.7 mg/dL (8.5-10.1); CARBON DIOXIDE 30.5 mmol/L (21.0-32.0); CREATININE - SERUM 1.1 mg/dL (0.6-1.3); POTASSIUM - SERUM 3.4 mmol/L (3.5-5.1)
[2020-05-23 12:47] LABS: BASOPHILS 0.2 % (0-2); EOSINOPHILS 0.2 % (0-7); HEMATOCRIT 33.8 % (42.0-54.0); HEMOGLOBIN 11.1 g/dL (13.5-17.5); LYMPHOCYTES 47.3 % (15-50); MCH 35.8 pg (26.0-34.0); MCHC 32.8 g/dL (31.0-37.0); MEAN PLATELET VOLUME 11.1 fL (7.4-10.4); NEUTROPHILS 47.3 % (40-80); RDW 16.7 % (11.5-14.5); WBC 5.2 10x3/uL (4.8-10.8)
[2020-05-23 12:54] LABS: PLATELET COUNT 151 10x3/uL (130-400)
--- NOTE | 2020-05-23 13:08 | NUR ---
PATIENT ADMITTED TO ROOM 2213. ADMISSION COMPLETE. IV SITED TO LFA AFTER ONE ATTEMPT WITH 22GAUGE. PATIENT STATES CANNOT PUT ANYTHING THROUGH LEFT CHEST PORT. LEFT CHEST PORT ACCESSED PRIOR TO ADMIT IN DR ARELLANO'S OFFICE. MEDS SENT TO PHARMACY FOR LOCKUP. PAPERWORK ON CHART.
[2020-05-23 15:07] VITALS: BP 111/84
--- NOTE | 2020-05-23 15:37 | NUR ---
PATIENT ALERT AND ORIENTED. RESTING IN BED QUIETLY. RESPIRATIONS EVEN NONLABORED. NO SIGNS OF DISTRESS NOTED. ISCHEMIA ON LEFT TOES, PURPLE. DENIES FURTHER NEEDS. SIDE RAILS UP. CALL LIGHTIN REACH. WILL CONTINUE TO MONITOR FOR SAFETY.
--- NOTE | 2020-05-23 16:38 | NUR ---
CALLED [facility]. NO TELEMETRY AVAIVABLE.
--- NOTE | 2020-05-23 17:44 | NUR ---
MED IMAGING NOTIFIED THAT PATIENT ON HEPARIN DRIP.
--- NOTE | 2020-05-23 18:21 | NUR ---
PUT DRESSING ON TOP OF PATIENTS CENTRAL LINE PORT. DENIES FURTHER NEEDS. SIDE RAILS UP. CALL LIGHT IN REACH. WILL CONTINUE TO MONITOR FOR SAFETY.
--- NOTE | 2020-05-23 18:44 | NUR ---
PATIENT ALERT AND ORIENTED EATING DINNER. REPIRATIONS EVEN NON LABORED. NO DISTRESS NOTED. DENIES FURTHER NEEDS. SIDE RAILS UP. CALL LIGHT IN REACH. WILL CONTINUE TO MONITOR FOR SAFETY.
[2020-05-23 18:58] VITALS: BP 127/89
[2020-05-23 20:00] VITALS: BP 154/101
--- NOTE | 2020-05-23 20:00 | NUR ---
PT SITTING UP IN BED WITHOUT DISTRESS, AOX4. BROTHER AT BEDSIDE. IV LEFT FA INFUSING HEPARIN DRIP @ 13ML/HR. IV RIGHT AC WOULD NOT FLUSH, CATHETER HAD COME MOST OF THE WAY OUT AND WAS BENT. REMOVED WITH CATH INTACT. LEFT FOOT 1ST, 4TH, 5TH TOE SLIGHT RED/PURPLE, PT STATES IT IS BETTER SINCE STARTING HEPARIN DRIP. DISCOLORATION RECEDING. LESS SWOLLEN BUT STATES STILL PAINFUL. DENIES NEEDS AT THIS TIME. CL IN REACH, WILL CTM
--- NOTE | 2020-05-23 21:25 | NUR ---
PTT 38, 3000 UNIT HEPARIN BOLUS GIVEN PER PROTOCOL. INCREASED DRIP TO 15ML/HR
[2020-05-24] VITALS: BP 117/60
[2020-05-24 04:00] VITALS: BP 126/85
[2020-05-24 05:01] LABS: BASOPHILS 0.3 % (0-2); EOSINOPHILS 0.8 % (0-7); HEMATOCRIT 28.7 % (42.0-54.0); HEMOGLOBIN 9.4 g/dL (13.5-17.5); IMMATURE GRANULOCYTES 1.5 % (0-5); LYMPHOCYTES 62.6 % (15-50); MCH 35.9 pg (26.0-34.0); MCHC 32.8 g/dL (31.0-37.0); MCV 109.5 fL (80.0-100.0); MEAN PLATELET VOLUME 10.8 fL (7.4-10.4); MONOCYTES 6.9 % (2-11); NEUTROPHILS 27.9 % (40-80); PLATELET COUNT 141 10x3/uL (130-400); RBC 2.62 10x6/uL (4.20-6.10); RDW 16.8 % (11.5-14.5); WBC 3.9 10x3/uL (4.8-10.8)
[2020-05-24 05:15] LABS: INR 0.92 (0.85-1.17); PROTIME 12.3 SECONDS (11.6-15.0)
--- NOTE | 2020-05-24 05:30 | NUR ---
PTT 82, NO CHANGE PER PROTOCOL, SECOND NURSE WITNESSED
[2020-05-24 05:55] LABS: ALBUMIN 2.9 g/dL (3.4-5.0); ANION GAP 8.3 mmol/L (8-16); BILIRUBIN - TOTAL 0.22 mg/dL (0.2-1.3); CALCIUM 7.7 mg/dL (8.5-10.1); CREATININE - SERUM 1.2 mg/dL (0.6-1.3); POTASSIUM - SERUM 3.3 mmol/L (3.5-5.1); PROTEIN - SERUM 5.6 g/dL (6.4-8.2)
[2020-05-24 09:41] VITALS: BP 152/96
[2020-05-24 13:45] VITALS: BP 137/90
[2020-05-24 13:47] VITALS: Ht 177.8 cm; Wt 83.5 kg
--- NOTE | 2020-05-24 18:45 | NUR ---
PATIENT IN BED WITH EYES CLOSED RESTING QUIETLY. IV INTACT. HEPARIN AT 15. DRESSING TO RIGHT GROIN CDI. NO BLEEDING OR BRUISING NOTED. TOLERATED REGULAR DIET. CALL LIGHT WITHIN REACH.
[2020-05-24 20:00] VITALS: BP 108/79
--- NOTE | 2020-05-24 20:00 | NUR ---
PT SITTING UP IN BED WITHOUT DISTRESS, AOX4. STATES PAIN IN BACK AND LEFT LEG 10/10. GAVE DILAUDID ORDERED. LEFT FA IV INFUSING HEPARIN @ 15ML/HR. DENIES OTHER NEEDS AT THIS TIME. CL IN REACH, WILL CTM
--- NOTE | 2020-05-24 21:30 | NUR ---
PTT 40.8, INCREASED HEPARIN TO 16ML/HR PER PROTOCOL, SECOND NURSE WITNESSED
--- NOTE | 2020-05-24 22:30 | NUR ---
PT UP WALKING HALLWAY, STATES HIS FOOT FEELS BETTER TO WALK ON AND HE WAS GETTING UNCOMFORTABLE JUST SITTING IN BED. WALKED TO VENDING MACHINE FOR SNACK AND WENT BACK TO ROOM. REFUSED TO PUT TELEMETRY BACK ON. DENIES NEEDS. CL IN REACH, WILL CTM
[2020-05-25] VITALS: BP 132/80
[2020-05-25 04:00] VITALS: BP 117/51
[2020-05-25 06:28] LABS: HEMATOCRIT 29.9 % (42.0-54.0); HEMOGLOBIN 9.5 g/dL (13.5-17.5); MCH 35.4 pg (26.0-34.0); MCHC 31.8 g/dL (31.0-37.0); MEAN PLATELET VOLUME 11.2 fL (7.4-10.4); PLATELET COUNT 155 10x3/uL (130-400); RBC 2.68 10x6/uL (4.20-6.10); RDW 17.4 % (11.5-14.5); WBC 4.2 10x3/uL (4.8-10.8)
[2020-05-25 06:31] LABS: MCV 111.6 fL (80.0-100.0)
[2020-05-25 06:55] LABS: INR 0.86 (0.85-1.17); PROTIME 11.7 SECONDS (11.6-15.0)
[2020-05-25 07:04] LABS: ALBUMIN 3.2 g/dL (3.4-5.0); ALKALINE PHOSPHATASE 87 U/L (30-120); ALT (SGPT) 41 U/L (10-68); BILIRUBIN - TOTAL 0.31 mg/dL (0.2-1.3); CALC OSMOLALITY 277 mosm/kg (275-300); CALCIUM 7.5 mg/dL (8.5-10.1); CARBON DIOXIDE 28.6 mmol/L (21.0-32.0); CHLORIDE - SERUM 102 mmol/L (98-107); GLUCOSE 151 mg/dL (74-106); POTASSIUM - SERUM 3.3 mmol/L (3.5-5.1); PROTEIN - SERUM 6.2 g/dL (6.4-8.2); SODIUM 138 mmol/L (136-145); UREA NITROGEN 10 mg/dL (7-18); eGFR NON AFRICAN AMERICAN 81 mL/min (90-120)
[2020-05-25 07:09] LABS: APTT 86.7 SECONDS (22.8-39.4)
[2020-05-25 07:20] LABS: LYMPHOCYTES 45 % (15-50); MONOCYTES 3 % (2-11); NEUTROPHILS 52 % (40-80); PLATELET ESTIMATE NORMAL
[2020-05-25 07:21] LABS: TEAR DROP CELLS 1+
[2020-05-25 08:45] VITALS: BP 115/72
[2020-05-25 09:38] LABS: % SATURATION 22 % (15-55); IRON 61 ug/dl (35-150); TOTAL IRON BIND CAPACITY 274 ug/dl (260-445); UNSAT IRON BIND CAPACITY 213 ug/dl (150-375)
--- NOTE | 2020-05-25 11:33 | NUR ---
PT A&O, SITTING UP IN BED. STATES PAIN 8/10, PROVIDED PAIN MEDS PER ORDER. PIV IN L FOREARM, PATENT, NON TENDER. PT ABLE TO AMBULATE WITHOUT ASSIT. STATES PAIN ON TOP OF LEFT FOOT WHEN WALKING, PAIN ON LEFT LUCAS WHEN SITTING UP IN BED. EDUCATED PT THAT WE WILL D/C THE HEPARIN TODAY AND START PLAVIX AND ASPIRIN TO PREPARE FOR DISCHARGE. PT VERBALIZED UNDERSTANDING. PTS TOES ON LEFT FOOT ARE LIGHT PURPLE AND BLANCHING. HE STATES NO PAIN IN TOES. PT DENIES FURTHER NEEDS. BED LOW, CALL LIGHT IN REACH. WILL CONTINUE TO MONITOR.
[2020-05-25 13:15] VITALS: BP 138/90
[2020-05-25 17:46] VITALS: BP 111/68
--- NOTE | 2020-05-25 19:55 | NUR ---
LYING IN BED. ALERT AND ORIENTED X4. RESP EVEN AND NONLABORED. DRSG NOTED TO RT GROIN WITH BRUISE. 4TH AND 5TH DIGIT ON LT FOOT ARE CYANOTIC. STATES LT FOOT IS NUMB. PULSES WNL. AMBULATORY. 1+ EDEMA NOTED TO LT FOOT. HEPARIN DRIP INFUSING IN LT FOREARM @ 16 ML/HR. RATES PAIN IN LT FOOT 7.
[2020-05-25 20:00] VITALS: BP 121/78
--- NOTE | 2020-05-25 23:55 | NUR ---
MEDICATED WITH DILAUDID FOR C/O PAIN IN LT FOOT. CL IN REACH.
[2020-05-26] VITALS: BP 121/78
--- NOTE | 2020-05-26 01:00 | NUR ---
AMBULATING IN HALLWAY. DRINKING COFFEE. NO DISTRESS.
[2020-05-26 04:00] VITALS: BP 92/61
[2020-05-26 06:00] LABS: BASOPHILS 0.2 % (0-2); EOSINOPHILS 0.2 % (0-7); HEMATOCRIT 28.2 % (42.0-54.0); IMMATURE GRANULOCYTES 0.9 % (0-5); LYMPHOCYTES 50.1 % (15-50); MCH 35.3 pg (26.0-34.0); MCHC 31.9 g/dL (31.0-37.0); MCV 110.6 fL (80.0-100.0); MONOCYTES 11.3 % (2-11); NEUTROPHILS 37.3 % (40-80); PLATELET COUNT 158 10x3/uL (130-400); RBC 2.55 10x6/uL (4.20-6.10); RDW 17.1 % (11.5-14.5); WBC 4.4 10x3/uL (4.8-10.8)
[2020-05-26 06:02] LABS: INR 0.97 (0.85-1.17); PROTIME 12.9 SECONDS (11.6-15.0)
[2020-05-26 06:03] LABS: APTT 95.5 SECONDS (22.8-39.4)
[2020-05-26 06:37] LABS: ALBUMIN 3.1 g/dL (3.4-5.0); ALKALINE PHOSPHATASE 73 U/L (30-120); ALT (SGPT) 37 U/L (10-68); BILIRUBIN - TOTAL 0.37 mg/dL (0.2-1.3); CALC OSMOLALITY 277 mosm/kg (275-300); CALCIUM 7.5 mg/dL (8.5-10.1); CARBON DIOXIDE 27.7 mmol/L (21.0-32.0); CHLORIDE - SERUM 104 mmol/L (98-107); GLUCOSE 114 mg/dL (74-106); SODIUM 139 mmol/L (136-145); UREA NITROGEN 9 mg/dL (7-18); eGFR NON AFRICAN AMERICAN 81 mL/min (90-120)
--- NOTE | 2020-05-26 06:40 | NUR ---
PTT 95.5. HEPARIN DRIP HELD AT THIS TIME FOR 30 MINUTES. REDRAW ORDERED FOR 1300.
--- NOTE | 2020-05-26 07:10 | NUR ---
HEPARIN DRIP RESTARTED AT 1500 UNITS/HR AT THIS TIME.
[2020-05-26 08:59] VITALS: BP 121/76
--- NOTE | 2020-05-26 09:40 | EC ---
PATIENT:MAX IGLESIAS DATE OF SERVICE: 05/23/20 SEX: M MEDICAL RECORD: [id number] DATE OF : 62 LOCATION:D.MS [facility]221 AGE OF PATIENT: 60 ADMISSION DATE: 05/23/20 REFERRING PHYSICIAN: INTERPRETING PHYSICIAN: OREN WRIGHT MD ECHOCARDIOGRAM REPORT ECHO CHARGES 4 ECHO COMPLETE Date: 05/25/20 CLINICAL DIAGNOSIS: LE EDEMA, ON CHEMO ECHOCARDIOGRAPHIC MEASUREMENTS (adult normal given) AC root (d.<3.7cm) 3.1 cm LV Septum d (<1.2 cm> 0.8 cm Valve Excursion 1.2 cm LV Septum (systole) 1.2 cm Left Atria (s.<4.0cm> 3.0 cm LVPW d(<1.2cm) 1.4 cm RV (d.<2.3cm) 2.7 cm LVPW (sytole) 1.5 cm LV diastole(<5.6CM) 6.0 cm MV E-F(>70mm/sec) cm LV systole 3.9 cm LVOT Diameter 1.8 cm MV exc.(>10mm) cm Est.ejection fraction (50-75%) % DOPPLER: LVIT cm/sec A 69 cm/sec E 71 cm/sec LA cm/sec RVSP 15.6 mmHg LVOT 110 cm/sec AOP1/2T m/s Asc. Ao 110 cm/sec RVOT 72 cm/sec RA cm/sec PA 88 cm/sec AV Gradient Peak 4.9 mmHg AV Mean 2.9 mmHg AV Area 2.8 cm MV Gradient Peak 2.4 mmHg MV Mean 1.4 mmHg MV Area cm COMMENTS: Jigmaker: Nigel REHMAN Newspaper Illustrator: 4 Dr. Wright TAPE# PACS Pericardial Effusion N DATE OF SERVICE: TRANSTHORACIC ECHOCARDIOGRAM FINDINGS: The left ventricle shows normal size, shape, structure, and function. The normal ejection fraction of 55% to 60% and no wall motion abnormalities. Left atrium is normal size; shape, structure, and function. Aortic valve is normal structurally and functionally. ECHOCARDIOGRAM REPORT [id number] MAX IGLESIAS Mitral valve has normal structure and function. Tricuspid valve has trace tricuspid regurgitation with normal right ventricular systolic pressures. Right ventricle is normal in structure and function. Right atrium is normal structure and function. Pulmonic valve is not well visualized, but otherwise normal. Pericardium shows no evidence of pericardial effusion. TRANSINT:[id number] Voice Confirmation ID: [id number] DOCUMENT ID: [id number] OREN WRIGHT MD at 0940 CC: [id number] DICTATION DATE: 05/25/20 1744 CUSTOMER PROJECT MANAGER: 05/26/20 0229 ADM IN [facility] [address] [place] [address]
--- NOTE | 2020-05-26 09:45 | NUR ---
PT AMBULATING IN HALLWAY FOR EXERCISE. RESP EVEN AND UNLABORED. JAZZY WELL. IV TO LEFT FOREARM WITH HEPARIN INFUSING @ 15ML/HR VIA PUMP. SITE WITHOUT REDNESS OR EDEMA. NITRO PATCH INTACT TO LEFT FOOT. DENIES FURTHER NEEDS AT THIS TIME. ENCOURAGED TO CALL WITH NEEDS. CONTINUE POC
[2020-05-26] MEDS ORDERED: ALBUTEROL2.5 MG/3 M INH (11:58)
[2020-05-26] MEDS ORDERED: COUMADIN5 MG PO (11:59)
[2020-05-26] MEDS ORDERED: NICODERM CQ1 EAC3 TRANSDERM (11:59)
[2020-05-26] MEDS ORDERED: LOVENOX80 MG/0.8 SC (11:59)
[2020-05-26] MEDS ORDERED: NITRO BID 2% TOPICAL (12:01)
[2020-05-26] MEDS ORDERED: Nicoderm [PBKC] TRANSDERM (12:01)
[2020-05-26 12:10] VITALS: BP 130/76
[2020-05-26 16:50] VITALS: BP 143/98
--- NOTE | 2020-05-26 18:48 | NUR ---
CONTACTED KELSIE REGARDING RESTARTING PT REPORT OF LASIX 40MG DAILY. MEDICATION ORDERED. ATTEMPTED TO ADD MED TO HOME MED REC BUT UNABLE TO DO SO
[2020-05-26 20:00] VITALS: BP 137/95
--- NOTE | 2020-05-26 20:05 | NUR ---
SITTING UP ON SIDE OF BED TALKING TO HIS BROTHER. ALERT AND ORIENTED X4. RESP EVEN AND NONLABORED. REPORTS PAIN IN LT FOOT 9 ON PAIN SCALE. MEDICATED WITH DILAUDID ORDERED. 4TH AND 5TH DIGIT ON LT FOOT AND LT LATERAL FOOT IS CYANOTIC. PEDAL PULSES WNL. EDEMA NOTED TO BLE. SALINE LOCK NOTED TO LT FOREARM. AMBULATORY. STATES HE IS READY TO GO HOME. CL IN REACH.
[2020-05-27] VITALS: BP 120/80
--- NOTE | 2020-05-27 00:30 | NUR ---
AMBULATING IN HALLWAY. NO DISTRESS.
--- NOTE | 2020-05-27 02:15 | NUR ---
MEDICATED WITH DILAUDID FOR C/O PAIN IN LT FOOT RATING 10. CL IN REACH.
--- NOTE | 2020-05-27 03:10 | NUR ---
RESTING IN BED WITH EYES CLOSED. RESP NONLABORED. NO DISTRESS. CL IN REACH.
[2020-05-27 04:00] VITALS: BP 123/78
[2020-05-27 05:02] LABS: BASOPHILS 0 % (0-2); EOSINOPHILS 0.3 % (0-7); HEMATOCRIT 27.5 % (42.0-54.0); HEMOGLOBIN 8.8 g/dL (13.5-17.5); IMMATURE GRANULOCYTES 0.8 % (0-5); LYMPHOCYTES 40.2 % (15-50); MCH 35.2 pg (26.0-34.0); MEAN PLATELET VOLUME 10.5 fL (7.4-10.4); MONOCYTES 12.2 % (2-11); NEUTROPHILS 46.5 % (40-80); PLATELET COUNT 139 10x3/uL (130-400); WBC 3.9 10x3/uL (4.8-10.8)
[2020-05-27 05:29] LABS: APTT 69.7 SECONDS (22.8-39.4); INR 1.43 (0.85-1.17); PROTIME 17.3 SECONDS (11.6-15.0)
[2020-05-27 05:36] LABS: ALBUMIN 3.1 g/dL (3.4-5.0); ALKALINE PHOSPHATASE 72 U/L (30-120); ALT (SGPT) 38 U/L (10-68); BILIRUBIN - TOTAL 0.49 mg/dL (0.2-1.3); CALC OSMOLALITY 274 mosm/kg (275-300); CALCIUM 7.6 mg/dL (8.5-10.1); CARBON DIOXIDE 28.6 mmol/L (21.0-32.0); CHLORIDE - SERUM 103 mmol/L (98-107); GLUCOSE 117 mg/dL (74-106); POTASSIUM - SERUM 3.5 mmol/L (3.5-5.1); PROTEIN - SERUM 6.1 g/dL (6.4-8.2); SODIUM 138 mmol/L (136-145); UREA NITROGEN 8 mg/dL (7-18); eGFR NON AFRICAN AMERICAN 81 mL/min (90-120)
--- NOTE | 2020-05-27 06:39 | NUR ---
LYING ON LT SIDE IN BED WITH EYES CLOSED. RESP EVEN AND NONLABORED. NO DISTRES. CL IN REACH.
[2020-05-27 08:27] VITALS: BP 114/71
--- NOTE | 2020-05-27 08:36 | NUR ---
ASSESSMENT PER FLOW SHEET. PATIENT IS WITHOUT DISTRESS. COMPLAINS OF PAIN IN LEFT FOOT. 4TH AND 5TH TOES PURPLE ND DISCOLORED UNDER TOES. FOOT HAS SOME DISCOLORATION. DR ARELLANO TO SEE PATIENT. TED WITH IR IN ROOM. MONITOR
[2020-05-27 12:41] VITALS: BP 132/80
[2020-05-27 16:46] VITALS: BP 129/76
[2020-05-27 20:00] VITALS: BP 158/86
--- NOTE | 2020-05-27 23:22 | NUR ---
A&O X 4. SEEN WALKING AROUND HALLS, INDEPENDENTLY. DENIES NEEDS. END TOES ON LEFT FOOT APPEAR SLIGHTLY PURPLE. CTM.
[2020-05-28] VITALS: BP 120/60
--- NOTE | 2020-05-28 03:05 | NUR ---
I have reviewed this patient and I concur with the Shift Assessment completed by the Licensed Practical Nurse today this shift.
[2020-05-28 04:00] VITALS: BP 107/53
[2020-05-28 06:01] LABS: BASOPHILS 0.2 % (0-2); EOSINOPHILS 0.2 % (0-7); HEMATOCRIT 28.2 % (42.0-54.0); HEMOGLOBIN 9.1 g/dL (13.5-17.5); IMMATURE GRANULOCYTES 0.5 % (0-5); LYMPHOCYTES 46.3 % (15-50); MCH 35.1 pg (26.0-34.0); MCHC 32.3 g/dL (31.0-37.0); MCV 108.9 fL (80.0-100.0); MEAN PLATELET VOLUME 10.8 fL (7.4-10.4); MONOCYTES 12.1 % (2-11); NEUTROPHILS 40.7 % (40-80); PLATELET COUNT 152 10x3/uL (130-400); RBC 2.59 10x6/uL (4.20-6.10)
[2020-05-28 06:11] LABS: INR 1.62 (0.85-1.17); PROTIME 19.1 SECONDS (11.6-15.0)
[2020-05-28 06:29] LABS: ALBUMIN 3.1 g/dL (3.4-5.0); ALKALINE PHOSPHATASE 80 U/L (30-120); ALT (SGPT) 35 U/L (10-68); BILIRUBIN - TOTAL 0.37 mg/dL (0.2-1.3); CALC OSMOLALITY 279 mosm/kg (275-300); CALCIUM 7.6 mg/dL (8.5-10.1); CARBON DIOXIDE 26.1 mmol/L (21.0-32.0); CHLORIDE - SERUM 103 mmol/L (98-107); GLUCOSE 149 mg/dL (74-106); MAGNESIUM - SERUM 1.5 mg/dL (1.8-2.4); PHOSPHOROUS 3.1 mg/dL (2.5-4.9); POTASSIUM - SERUM 3.3 mmol/L (3.5-5.1); PROTEIN - SERUM 5.7 g/dL (6.4-8.2); SODIUM 139 mmol/L (136-145); UREA NITROGEN 9 mg/dL (7-18); eGFR NON AFRICAN AMERICAN 81 mL/min (90-120)
[2020-05-28 08:41] VITALS: BP 101/62
--- NOTE | 2020-05-28 10:30 | MORECARE ---
CASE MANAGEMENT DISCHARGE SUMMARY PATIENT: MAX IGLESIAS UNIT: [id number] ADM DATE: 05/23/20 AGE: 60 : 62 SEX: M ROOM/BED: D.2213 AUTHOR: SNEHALDOC PHYSICIAN: REFERRING PHYSICIAN: PORSHA ARELLANO MD DATE OF SERVICE: 05/28/20 Discharge Plan Patient Name: MAX IGLESIAS Facility: [facility]:[place] : 1960 Planned Disposition: Home or Self Care Anticipated Discharge Date: Discharge Date: Expected LOS: Initial Reviewer: [email or web address] Initial Review Date: 05/23/2020 Generated: 05/28/20 11:29 am Comments DCP- Discharge Planning Updated by [email or web address]: Amairani Solis on 05/28/20 9:[address] Patient Name: MAX IGLESIAS Admission Status: Elective Accout number: [id number] Admission Date: 05-23-2020 : 1960 Admission Diagnosis: Attending: Porsha Arellano Current LOS: 5 Anticipated DC Date: Planned Disposition: Home or Self Care Primary Insurance: [employer] MA[employer]GED MEDICAID Discharge Planning Comments: CM met with patient to complete initial dc planning assessment. CM educated patient on the CM role and verbal consent given by patient to complete assessment. Patient lives at home with his spouse where he is independent with his care. At discharge patient plans to return home and feels this is a safe discharge. CM discussed availability of home health, rehab services, and medical equipment. 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 Patient denied known discharge needs at this time. CM will continue to follow and will assist as needed with dc plans/needs. Prospecting Driller: Amairani Solis DCPIA - Discharge Planning Initial Assessment Updated by [email or web address]: Amairani Solis on 05/28/20 10:24 am * Is the patient Alert and Oriented? Yes * How many steps to enter\exit or inside your home? * PCP [facility] * Pharmacy [facility] * Preadmission Environment Home with Family * ADLs Independent * Equipment None * List name and contact numbers for known caregivers / representatives who currently or will assist patient after discharge: FATEMEH PANG () [phone] * Verbal permission to speak to the caregivers and representatives has been obtained from the patient. N/A * Community resources currently utilized None * Additional services required to return to the preadmission environment? No * Can the patient safely return to the preadmission environment? Yes * Has this patient been hospitalized within the prior 30 days at any hospital? No Patient Name: MAX IGLESIAS Page [id number] at 1030 All edits/amendments must be made on the electronic document DICTATION DATE: 05/28/20 1030 HAND LEATHER TRIMMER: [email or web address] 05/28/20 1030 RPT#: [id number] DC DATE: STATUS: ADM IN [facility] [address] [place] [address] END OF REPORT
[2020-05-28 12:07] VITALS: BP 118/64
--- NOTE | 2020-05-28 14:58 | NUR ---
Nutrition Follow-up: Diet: Regular PO intake: ~77% average x last 9 meals Last BM: 05/28/20. WT: 184# (05/24/20) Meds noted: coumadin, lasix. Labs noted: K 3.4(L), Glu 149(H) Recommend continue current diet. RD following.
[2020-05-28 16:42] VITALS: BP 127/70
[2020-05-28 20:00] VITALS: BP 131/78
--- NOTE | 2020-05-29 | NUR ---
PT REQUESTS LOVENOX BE GIVEN IN THE MORNING SINCE HE GOT LAST DOSE LATER THAN USUAL. 06/07 AIN TO LEFT FOOT. NO FURTHER NEEDS VOICED AT THIS TIME. CTM.
--- NOTE | 2020-05-29 02:39 | NUR ---
I have reviewed this patient and I concur with the Shift Assessment completed by the Licensed Practical Nurse today this shift.
[2020-05-29 04:00] VITALS: BP 110/53
[2020-05-29 05:36] LABS: BASOPHILS 0.2 % (0-2); EOSINOPHILS 0.2 % (0-7); HEMOGLOBIN 8.7 g/dL (13.5-17.5); IMMATURE GRANULOCYTES 0.5 % (0-5); LYMPHOCYTES 49.1 % (15-50); MCH 35.1 pg (26.0-34.0); MCHC 32.2 g/dL (31.0-37.0); MCV 108.9 fL (80.0-100.0); MEAN PLATELET VOLUME 10.8 fL (7.4-10.4); MONOCYTES 13.7 % (2-11); NEUTROPHILS 36.3 % (40-80); PLATELET COUNT 158 10x3/uL (130-400); RBC 2.48 10x6/uL (4.20-6.10); RDW 16.7 % (11.5-14.5); WBC 4.2 10x3/uL (4.8-10.8)
[2020-05-29 05:37] LABS: APTT 63.5 SECONDS (22.8-39.4); INR 1.69 (0.85-1.17); PROTIME 19.7 SECONDS (11.6-15.0)
[2020-05-29 05:52] LABS: ALBUMIN 2.9 g/dL (3.4-5.0); ALKALINE PHOSPHATASE 70 U/L (30-120); ALT (SGPT) 29 U/L (10-68); BILIRUBIN - TOTAL 0.31 mg/dL (0.2-1.3); CALC OSMOLALITY 276 mosm/kg (275-300); CALCIUM 8.1 mg/dL (8.5-10.1); CARBON DIOXIDE 25.8 mmol/L (21.0-32.0); CHLORIDE - SERUM 106 mmol/L (98-107); CREATININE - SERUM 0.9 mg/dL (0.6-1.3); MAGNESIUM - SERUM 1.7 mg/dL (1.8-2.4); PHOSPHOROUS 3.1 mg/dL (2.5-4.9); POTASSIUM - SERUM 3.3 mmol/L (3.5-5.1); PROTEIN - SERUM 5.9 g/dL (6.4-8.2); SODIUM 139 mmol/L (136-145); UREA NITROGEN 9 mg/dL (7-18); eGFR NON AFRICAN AMERICAN > 90 mL/min (90-120)
[2020-05-29 05:54] LABS: GLUCOSE 99 mg/dL (74-106)
[2020-05-29 09:11] VITALS: BP 114/66
[2020-05-29 12:22] VITALS: BP 125/71
--- NOTE | 2020-05-29 13:53 | NUR ---
PATIENT RECIEVED DC INSTRUCTIONS AND PRESCRIPTIONS. VERBALIZED UNDERSTANDING. NO QUESTIONS AT THIS TIME. IV REMOVED WITH CATH TIP INTACT. CALLED BROTHER TO COME GET HIM. STATES HE IS GOING TO WAIT DOWNSTAIRS. ASSISTED OUT OF HOSPITAL TO FRONT WITH PERSONAL BELONGINGS VIA WC BY MANAGER BANKING. PATIENT ALERT, ORIENTED, ABLE TO WALK AND MOVE WITH NO PROBLEMS. DOESNT WANT TO WAIT FOR FAMILY IN ROOM.
--- NOTE | 2020-05-30 17:30 | MORECARE ---
CASE MANAGEMENT DISCHARGE SUMMARY PATIENT: MAX IGLESIAS UNIT: [id number] ADM DATE: 05/23/20 AGE: 60 : 62 SEX: M ROOM/BED: D.2213 AUTHOR: SNEHALDOC PHYSICIAN: REFERRING PHYSICIAN: PORSHA ARELLANO MD DATE OF SERVICE: 05/30/20 Discharge Plan Patient Name: MAX IGLESIAS Facility: [facility]:[place] : 1960 Planned Disposition: Home or Self Care Anticipated Discharge Date: Discharge Date: 05/29/2020 Expected LOS: Initial Reviewer: [email or web address] Initial Review Date: 05/23/2020 Generated: 05/30/20 6:29 pm Comments DCP- Discharge Planning Updated by [email or web address]: Amairani Solis on 05/28/20 9:[address] Patient Name: MAX IGLESIAS Admission Status: Elective Accout number: [id number] Admission Date: 05-23-2020 : 1960 Admission Diagnosis: Attending: Porsha Arellano Current LOS: 5 Anticipated DC Date: Planned Disposition: Home or Self Care Primary Insurance: [employer] Discharge Planning Comments: CM met with patient to complete initial dc planning assessment. CM educated patient on the CM role and verbal consent given by patient to complete assessment. Patient lives at home with his spouse where he is independent with his care. At discharge patient plans to return home and feels this is a safe discharge. CM discussed availability of home health, rehab services, and medical equipment. His brother will be his jukebox route driver home. Patient denied known discharge needs at this time. CM will continue to follow and will assist as needed with dc plans/needs. Scrap Bunch Maker: Amairani Solis DCPIA - Discharge Planning Initial Assessment Updated by [email or web address]: Amairani Solis on 05/28/20 10:24 am * Is the patient Alert and Oriented? Yes * How many steps to enter\exit or inside your home? * PCP [facility] * Pharmacy [facility] * Preadmission Environment Home with Family * ADLs Independent * Equipment None * List name and contact numbers for known caregivers / representatives who currently or will assist patient after discharge: FATEMEH PANG () [phone] * Verbal permission to speak to the caregivers and representatives has been obtained from the patient. N/A * Community resources currently utilized None * Additional services required to return to the preadmission environment? No * Can the patient safely return to the preadmission environment? Yes * Has this patient been hospitalized within the prior 30 days at any hospital? No Last DP export: 05/28/20 9:30 a Patient Name: ARMANDO IGLESIASN Page [id number] at 1730 All edits/amendments must be made on the electronic document DICTATION DATE: 05/30/201728 NURSES ASSISTANT: SCOTTY 05/30/201728 RPT#: [id number] DC DATE:05/29/20 STATUS: DIS IN [facility] [address] [place] [address] END OF REPORT
== END 2020-05-29 14:01 | disposition home or self-care (01) | DRG 271 ==
LOC: D.MS 11:37 → OBSVTIME 11:37 → D.MS 11:39
PROVIDERS: Family Medicine; Radiology Diagnostic Radiology; ADMIT Internal Medicine Hematology & Oncology; ATTEND Internal Medicine Hematology & Oncology
PROC: 047L3DZ Dilation of Left Femoral Artery with Intraluminal Device, Percutaneous Approach (ICD-10-PCS; 2020-05-24)
PROC: 04CL3ZZ Extirpation of Matter from Left Femoral Artery, Percutaneous Approach (ICD-10-PCS; principal; 2020-05-24 14:30)
DX: I70.213 Atherosclerosis of native arteries of extremities with intermittent claudication, bilateral legs (principal); C34.90 Malignant neoplasm of unspecified part of unspecified bronchus or lung; F17.213 Nicotine dependence, cigarettes, with withdrawal; I10 Essential (primary) hypertension; G89.29 Other chronic pain; Z72.89 Other problems related to lifestyle; F12.90 Cannabis use, unspecified, uncomplicated; D64.9 Anemia, unspecified

== ENCOUNTER 2020-08-01 09:29 | Observation (INO) | payer OTHER ==
[~2020-08-01] VITALS: Ht 180.3 cm; Wt 80.9 kg
[~2020-08-01 09:29] MED LIST changes: +ALBUTEROL2.5 MG/3 M INH; +CELEXA20 MG PO; +COUMADIN5 MG PO; +GABAPENTIN100 MG PO; +HYDROCODON-ACE1 EA10 PO; +LOVENOX80 MG/0.8 SC; +NICODERM CQ1 EAC3 TRANSDERM; +NITRO BID 2% TOPICAL
[2020-08-01] MEDS ORDERED: FENTANYL1 PATCH .1 TRANSDERM (09:38)
[2020-08-01 10:00] VITALS: BP 139/92
[2020-08-01 10:05] LABS: BASOPHILS 0.2 % (0-2); EOSINOPHILS 0.5 % (0-7); HEMATOCRIT 41.1 % (42.0-54.0); HEMOGLOBIN 14.1 g/dL (13.5-17.5); IMMATURE GRANULOCYTES 0.3 % (0-5); LYMPHOCYTES 15.7 % (15-50); MCHC 34.3 g/dL (31.0-37.0); MONOCYTES 3.3 % (2-11); PLATELET COUNT 183 10x3/uL (130-400); RBC 4.15 10x6/uL (4.20-6.10); RDW 13.5 % (11.5-14.5); WBC 11.1 10x3/uL (4.8-10.8)
[2020-08-01 10:30] LABS: CALC OSMOLALITY 274 mosm/kg (275-300); CARBON DIOXIDE 25.2 mmol/L (21.0-32.0); CHLORIDE - SERUM 101 mmol/L (98-107); CREATININE - SERUM 1.4 mg/dL (0.6-1.3); POTASSIUM - SERUM 3.3 mmol/L (3.5-5.1); SODIUM 136 mmol/L (136-145); UREA NITROGEN 13 mg/dL (7-18); eGFR NON AFRICAN AMERICAN 55 mL/min (90-120)
[2020-08-01 10:34] LABS: GLUCOSE 149 mg/dL (74-106)
[2020-08-01 10:38] LABS: ALBUMIN 3.9 g/dL (3.4-5.0); ALKALINE PHOSPHATASE 111 U/L (30-120); ALT (SGPT) 49 U/L (10-68); AMYLASE - SERUM 85 U/L (25-115); BILIRUBIN - TOTAL 0.59 mg/dL (0.2-1.3); CREATINE KINASE 77 UL (21-232); LIPASE 88 U/L (73-393); MAGNESIUM - SERUM 1.8 mg/dL (1.8-2.4); PROTEIN - SERUM 6.9 g/dL (6.4-8.2); TROPONIN-I < 0.017 ng/mL (0.000-0.060)
[2020-08-01 11:57] LABS: UDS - AMPHET NEGATIVE QUAL (NEGATIVE); UDS - BARB NEGATIVE QUAL (NEGATIVE); UDS - BENZO NEGATIVE QUAL (NEGATIVE); UDS - COCAINE NEGATIVE QUAL (NEGATIVE); UDS - OPIATE POSITIVE QUAL (NEGATIVE); UDS - PCP NEGATIVE QUAL (NEGATIVE); UDS - THC POSITIVE QUAL (NEGATIVE)
[2020-08-01 12:00] VITALS: BP 142/110
[2020-08-01 13:00] VITALS: BP 143/82
[2020-08-01 13:24] LABS: BACTERIA FEW /hpf (NONE SEEN); BILIRUBIN NEGATIVE (NEGATIVE); KETONE SMALL mg/dL (NEGATIVE); NITRITE NEGATIVE (NEGATIVE); RED CELLS - URINE RARE /hpf (0-5); UROBILINOGEN NORMAL (NORMAL); WHITE CELLS - URINE OCC /hpf (0-5)
[2020-08-01 13:25] LABS: AMORPHOUS SEDIMENT >1+ /lpf (NONE SEEN)
--- NOTE | 2020-08-01 13:40 | NUR ---
DR ZARAGOZA AT BS
[2020-08-01 13:57] VITALS: Ht 180.3 cm; Wt 80.9 kg
[2020-08-01 13:59] VITALS: BP 127/88
--- NOTE | 2020-08-01 14:18 | NUR ---
CONSENTS FOR SURGERY, BLOOD AND ANESTHESIA EXPL TO PT VERB UNDER AND ALL SIGNED/WITNESSED
[2020-08-01 14:40] VITALS: BP 125/91
--- NOTE | 2020-08-01 15:12 | NUR ---
NO SCD"S PLACED DUE TO RECENT HISTORY OF PERIPHERAL BLOOD CLOTS, DANNA.
--- NOTE | 2020-08-01 15:21 | NUR ---
PATIENT NOTED TO HAVING MULTIPLE RED SCABBY AREAS ALL OVER BODY, TWORLEY.
[2020-08-01] MEDS ORDERED: PERCOCET 5-3251 TAB PO (15:29)
--- NOTE | 2020-08-01 17:47 | NUR ---
1715 IV REMOVED AND INSTRUCTIONS GIVEN. PAIN EASING SOME.
--- NOTE | 2020-08-02 15:05 | OP ---
PATIENT NAME: MAX IGLESIAS MEDICAL RECORD: [id number] :[birth year] LOCATION:[facility] [place] [place]- ADMISSION DATE:08/01/20 SURGEON: ARI ZARAGOZA MD DATE OF OPERATION: 08/01/2020 PREOPERATIVE DIAGNOSES: 1. Acute appendicitis with localized peritonitis. 2. Stage IV lung cancer. POSTOPERATIVE DIAGNOSES: 1. Acute appendicitis with localized peritonitis. 2. Stage IV lung cancer. PROCEDURE: Laparoscopic appendectomy. SURGEON: Ari Zaragoza MD REPORT OF PROCEDURE: The patient's abdomen was prepped and draped in sterile fashion. A cutdown was made on the superior aspect of the umbilicus, 0 Vicryls were placed in the fascia bilaterally and the fascia was incised with 15-blade. I then bluntly entered the peritoneal cavity and placed a 12-mm Alberto port. Under direct visualization, a 5 mm trocar was placed in the left lower quadrant and another was placed in the suprapubic region. The appendix was easily visualized and was noted to be acutely inflamed with no signs of gangrene or perforation. A window was made in the mesoappendix near its base and the mesoappendix was transected with a 45 white load Endo-KATIE stapler. The appendix was then transected at its base near the cecum using a 45 blue load Endo-KATIE stapler. We placed the appendix into an Endo Catch bag. We irrigated out the right lower quadrant and there was some bleeding from the staple line. We initially tried to treat this with electrocautery, but eventually had to use 5 mm ligaclips, this stopped any bleeding. At this point, the ports and insufflation were then removed and the appendix was taken out through the umbilicus. The umbilical fascia was closed with interrupted 0 Vicryls times 3. The wounds were then irrigated out with normal saline and infused with 10 mL of 0.25% Marcaine with epinephrine. The skin incisions were closed with subcutaneous 5-0 Monocryl and dressed appropriately. COMPLICATIONS: None. CONDITION: Stable. ANESTHESIA: General endotracheal and local. BLOOD LOSS: Minimal. TRANSINT:[id number] Voice Confirmation ID: [id number] DOCUMENT ID: [id number] OPERATIVE REPORT [id number] MAX IGLESIAS CHRISTIAN MD at 1505 CC: LEVI ARELLANO MD [id number] DICTATION DATE: 08/01/20 1533 SENIOR CONSTRUCTION PROJECT MANAGER: 08/01/20 1818 DIS IN 08/01/20 [place] [id number] [place] [id number]
== END 2020-08-01 17:48 | disposition home or self-care (01) ==
LOC: D.ER 09:29 → OBSVTIME 13:16 → D.MS 13:16 → D.SDCHOLD 16:48
PROVIDERS: Family Medicine; ADMIT Surgery; ATTEND Surgery
DX: K35.30 Acute appendicitis with localized peritonitis, without perforation or gangrene (principal); C34.90 Malignant neoplasm of unspecified part of unspecified bronchus or lung; F17.203 Nicotine dependence unspecified, with withdrawal; F19.20 Other psychoactive substance dependence, uncomplicated; I10 Essential (primary) hypertension

== ENCOUNTER → 2021-02-19 12:44 | Outpatient (CLI) | payer MEDICAID ==
[2020-11-17 03:23] VITALS: BMI 21.8
[~2021-02-19 12:44] MED LIST changes: +CLEOCIN HCL300 MG PO; +FENTANYL1 EAC5 TRANSDERM; +FENTANYL1 PATCH .1 TRANSDERM; +FUROSEMIDE40 MG PO; +PEPCID AC20 MG PO; +PERCOCET 5-3251 TAB PO; +POTASSIUM CHLO20 MEQ PO
== END | disposition home or self-care (01) ==
LOC: D.MRI 12:44
PROVIDERS: ATTEND Internal Medicine Hematology & Oncology
DX: C34.01 Malignant neoplasm of right main bronchus (principal)